=== PATIENT | male | born 1955 | race Caucasian/White ===

== ENCOUNTER 2016-12-29 10:14 | Emergency (ER) | payer SELFPAY ==
[~2016-12-29 10:14] MED LIST: ATOR10 PO; CIAL20TA PO; DONNTAB12 PO; NEXI10GR PO; TEST200I13 IM
[2016-12-29 10:31] VITALS: BP 157/81; PULSE 66; RESP 18; O2SAT 98
[2016-12-29] MEDS ORDERED: IBUP800T23 PO (10:35)
[2016-12-29 10:58] LABS: AUTOMATED NEUTROPHIL # 3.4 TH/MM3 (1.8-7.7); BASOPHIL # 0.1 TH/MM3 (0-0.2); BASOPHIL % 1.7 % (0.0-2.0); EOSINOPHIL # 0.1 TH/MM3 (0-0.4); EOSINOPHIL % 2.3 % (0.0-4.0); HEMATOCRIT 43.4 % (39.0-51.0); LYMPH % 26.7 % (9.0-44.0); LYMPHOCYTE # 1.4 TH/MM3 (1.0-4.8); MEAN CELL VOLUME 86.8 FL (80.0-100.0); MEAN CORPUSCULAR HEMOGLOBIN 28.8 PG (27.0-34.0); MEAN CORPUSCULAR HGB CONC 33.1 % (32.0-36.0); MONO % 6.8 % (0.0-8.0); NEUT % 62.5 % (16.0-70.0); PLATELET COUNT 458 TH/MM3 (150-450); RED CELL DISTRIBUTION WIDTH 12.2 % (11.6-17.2); WHITE BLOOD COUNT 5.4 TH/MM3 (4.0-11.0)
[2016-12-29] MEDS ORDERED: SODIUM CHLOR 0.9% 1000 ML INJ 1,000 ML IV SCH ×2 (11:00→11:45)
[2016-12-29 11:02] LABS: HEMO FLAGS DIFF FINAL
[2016-12-29 11:06] LABS: CHLORIDE 110 MEQ/L (98-107); POTASSIUM 4.4 MEQ/L (3.5-5.1); SODIUM (NA) 141 MEQ/L (136-145)
[2016-12-29 11:10] LABS: ANION GAP 8 MEQ/L (5-15); BICARBONATE 23.1 MEQ/L (21.0-32.0); BLOOD UREA NITROGEN 25 MG/DL (7-18)
[2016-12-29 11:13] LABS: ALT (GPT) 24 U/L (12-78); AST (GOT) 17 U/L (15-37); GLOMERULAR FILTRATION RATE 98 ML/MIN (>89)
[2016-12-29 11:15] LABS: TOTAL BILIRUBIN ADULT 0.7 MG/DL (0.2-1.0)
[2016-12-29 11:16] LABS: ALKALINE PHOSPHATASE 67 U/L (45-117)
[2016-12-29] MEDS ORDERED: LISI10TA3 PO (11:33)
[2016-12-29 11:48] VITALS: BP 158/83; PULSE 53; RESP 18; TEMP 98.7; O2SAT 99
--- NOTE | 2016-12-29 11:48 | PD ---
HPI Chief Complaint: GI Complaint Time Seen by Provider: 10:27 Travel History International Travel<30 days: No Contact w/Intl Traveler<30days: No Traveled to known affect area: No History of Present Illness HPI Is a 61-year-old man who presents to the emergency department complaining of several days of creamy loose stools. He was in the hospital with his when she was getting bone marrow transplant. He states she took a Lortab some Imodium, days ago and has only had a bowel movement since then. He does work in the sun but states he drinks plenty of fluids stay well-hydrated. He has no history of GI bleed. Denies any dark black or tarry stools. He has had some very mild abdominal cramping, but it's been minimal. He does take NSAIDs fairly regularly. Only medical history is hypertension. Came in because he had a couple symptoms of dizziness over the past 2 days as well. History Past Medical History Narrative Medical Hypertension Influenza Vaccination: Yes Social History Alcohol Use: Yes (occasionally) Tobacco Use: No Allergies-Medications (Allergen,Severity, Reaction): Coded Allergies: No Known Allergies (Unverified , 06/13/13) Reported Meds & Prescriptions Reported Meds & Active Scripts Active Reported Lisinopril 10 Mg Tab 10 Mg PO DAILY Ibuprofen 800 Mg Tab 800 Mg PO HS PRN Review of Systems Except as stated in HPI: all other systems reviewed are Neg Physical Exam Narrative GENERAL: Well-appearing 61-year-old man, no acute distress. SKIN: Focused skin assessment warm/dry. HEAD: Atraumatic. Normocephalic. EYES: Pupils equal and round. No scleral icterus. No injection or drainage. ENT: No nasal bleeding or discharge. Mucous membranes pink and moist. NECK: Trachea midline. No JVD. CARDIOVASCULAR: Regular rate and rhythm. No murmur appreciated. RESPIRATORY: No accessory muscle use. Clear to auscultation. Breath sounds equal bilaterally. GASTROINTESTINAL: Abdomen soft, non-tender, nondistended. Hepatic and splenic margins not palpable. MUSCULOSKELETAL: No obvious deformities. Data Data Orders Complete Blood Count With Diff (12/29/16 10:46) Comprehensive Metabolic Panel (12/29/16 10:46) Electrocardiogram (12/29/16 ) Iv Access Insert/Monitor (12/29/16 10:46) Sodium Chlor 0.9% 1000 Ml Inj (Ns 1000 M (12/29/16 11:00) Sodium Chlor 0.9% 1000 Ml Inj (Ns 1000 M (12/29/16 11:45) Labs Laboratory Tests Test 12/29/16 10:50 White Blood Count 5.4 TH/MM3 Red Blood Count 5.00 MIL/MM3 Hemoglobin 14.4 GM/DL Hematocrit 43.4 % Mean Corpuscular Volume 86.8 FL Mean Corpuscular Hemoglobin 28.8 PG Mean Corpuscular Hemoglobin 33.1 % Concent Red Cell Distribution Width 12.2 % Platelet Count 458 TH/MM3 Mean Platelet Volume 7.6 FL Neutrophils (%) (Auto) 62.5 % Lymphocytes (%) (Auto) 26.7 % Monocytes (%) (Auto) 6.8 % Eosinophils (%) (Auto) 2.3 % Basophils (%) (Auto) 1.7 % Neutrophils # (Auto) 3.4 TH/MM3 Lymphocytes # (Auto) 1.4 TH/MM3 Monocytes # (Auto) 0.4 TH/MM3 Eosinophils # (Auto) 0.1 TH/MM3 Basophils # (Auto) 0.1 TH/MM3 CBC Comment DIFF FINAL Differential Comment Sodium Level 141 MEQ/L Potassium Level 4.4 MEQ/L Chloride Level 110 MEQ/L Carbon Dioxide Level 23.1 MEQ/L Anion Gap 8 MEQ/L Blood Urea Nitrogen 25 MG/DL Creatinine 0.80 MG/DL Estimat Glomerular Filtration 98 ML/MIN Rate Random Glucose 107 MG/DL Calcium Level 9.0 MG/DL Total Bilirubin 0.7 MG/DL Aspartate Amino Transf 17 U/L (AST/SGOT) Alanine Aminotransferase 24 U/L (ALT/SGPT) Alkaline Phosphatase 67 U/L Total Protein 7.5 GM/DL Albumin 4.0 GM/DL [facility] Medical Decision Making Medical Screen Exam Complete: Yes Emergency Medical Condition: Yes Differential Diagnosis Dehydration, anemia or bleeding, infection, other Narrative Course 61-year-old man appears well. History of some loose stools. No real abdominal pain or cramping. Benign exam. No dark stools or evidence of bleeding. Hemoglobin is normal. BUN is elevated. Suspect dehydration. Gently could have a similar presentation. Kidney injury seems less likely. Given IV fluid hydration, recommend increased by mouth hydration, repeat labs in 2 weeks. Diagnosis Primary Impression: Dizziness Additional Impression: Dehydration Additional Instructions: Follow-up with your primary doctor in the next 2 weeks. Return to the emergency department for any new or worsening symptoms. Med/Other Pt SpecificInfo: Prescription(s) given Disposition: 01 DISCHARGE HOME Condition: Stable Inder Madden MD Dec 29, 2016 11:47
--- NOTE | 2016-12-30 14:55 | EKG ---
Date Performed: 12/29/2016 Time Performed: 10:52:47 PTAGE: 61 years EKG: SINUS BRADYCARDIA WITH SINUS ARRHYTHMIA WITHIN NORMAL LIMITS Compared to prior tracing no s ignificant change BORDERLINE ECG PREVIOUS TRACING : 06/13/2013 10.35 DOCTOR: Percy Hunt Interpretating Date/Time 12/30/2016 14:54:37
== END 2016-12-29 12:37 | disposition home or self-care (01) ==
LOC: PHED 10:14
DX: E86.0 Dehydration (principal); R00.1 Bradycardia, unspecified; I49.8 Other specified cardiac arrhythmias; I10 Essential (primary) hypertension
CPT/HCPCS: 80053; 85025; 93005; 96360; 96361; 99284; J7030